=== PATIENT | female | born 1985 | race Caucasian/White ===

== ENCOUNTER 2017-11-24 16:00 | Outpatient (RCR) | payer OTHER, MEDICAID, SELFPAY ==
--- NOTE | 2017-09-27 13:12 | PT.OIE ---
Current Diagnoses Stress incontinence (female) (male) (09/24/17) Other female genital prolapse (09/24/17) Past Surgical History History of third molar tooth extraction Provider Visit Care Team Role Provider Type Jeronimo Rosas MD Primary Care Provider Non-Staff Specialty: Family Practice Address: [facility] [place], [address] Email: Sophie Morris MD Attending Provider Physician Specialty: CORPORATE RECEPTIONIST Address: [address] [place] [address], [address] Email: [email or web address] Physical Therapy Initial Evaluation PT-OP-A Visit Information Start: 09/27/17 12:06 Freq: Status: Active Protocol: Document 09/24/17 10:30 [facility] (Rec: 09/27/17 12:30 [facility] [email or web address]) Out-Patient Physical Therapy Visit Information Visit Information Visit Type Initial Evaluation Visit Start Time 10:30 Visit Stop Time 11:15 Total Visit Minutes 45 Visit Number 1 Number of FILM BOOKER Visits 0 Evaluation Information Evaluation Date 09/24/17 PT-OP-B Current Condition Start: 09/27/17 12:06 Freq: Status: Active Protocol: Document 09/24/17 10:30 [facility] (Rec: 09/27/17 12:30 [facility] [email or web address]) Current Condition History of Current Condition Onset Date December 2015 Current Complaints complaints of pelvic heavyness and pressure, limits activity History of Current Condition 32 year old female who reports having a stage 3 prolapse of bladderm uterus, and rectum. Her symptoms began following a vaginal delvery at 2 1/2 weeks over due in which she had a vaginal hematoma and the placenta would not detach so manual detachment was necessary. She also reports tearing but is not sure degree . She had pneumonia 3 months ago and the coughing worsened her symptoms. 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 Arlen also reports having a diastasis and notes she feels as she does not have any core at this time. 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 She reports wanting to hold off on surgery as she would like to have another baby. Treatment Goals Patient/Caregiver Goals Arlen's treatment goals include pelvic floor strengthening to minimize her prolapse symptoms allowing her to continue working a a art history instructor and for support with a future Prior Functional Status Baseline Function- ADL's Independent Baseline Function- Mobility Independent Current Functional Impairments (Reported) Functional Limitations- ADL's limited with activities that require heavy lifting Functional Limitations- Recreation/ unable to run and limited with Hobbies what she can demonstrate to her clients with pilates PT-OP-C Subjective Start: 09/27/17 12:06 Freq: Status: Active Protocol: Document 09/24/17 10:30 [facility] (Rec: 09/27/17 12:30 [facility] [email or web address]) Patient Questionnaires Pelvic Pain and Urgency/Frequency Patient Symptom Scale Pelvic Pain Score 15 PT-OP-F Manual Assessment Start: 09/27/17 12:06 Freq: Status: Active Protocol: Document 09/24/17 10:30 [facility] (Rec: 09/27/17 12:30 [facility] [email or web address]) Manual Assessments Soft Tissue Assessment Soft Tissue Mobility Assessment 2 finger width diastasis noted both distal and proximal to the umbilicus PT-OP-I Pelvic Floor Start: 09/27/17 12:06 Freq: Status: Active Protocol: Document 09/24/17 10:30 [facility] (Rec: 09/27/17 12:58 [facility] [email or web address]) Pelvic Floor Assessment Urine Pelvic Floor Surgery No Urinary Symptoms Prolapse Falling Out Feeling/Heavy Leakage Size Medium Leakage Cause Cough Exercise Lifting Sneeze Urge Urine Pad Type Panty Liner Pelvic Clock Pelvic Clock 12-3 Atrophy Pelvic Clock 3-6 Atrophy Pelvic Clock 6-9 Atrophy Pelvic Clock 9-12 Atrophy Prolapse Uterine Prolapse Grade 3 Cystocele Grade 3 Rectocele Grade 2 Perineal Descent Resting Present Bearing Present SEMG (uV) Baseline 1.5 10 Second Contraction 6.97 Recruitment Pattern Fair Relaxation Good Holding Poor/Slow Stability of Hold Poor/Slow SEMG Stability of Rest Good PT-OP-Q Treatments Start: 09/27/17 12:06 Freq: Status: Active Protocol: Document 09/24/17 10:30 [facility] (Rec: 09/27/17 12:40 [facility] [email or web address]) Therapeutic Exercises Supine Exercises 1 Supine Exercise Name Neoro awareness of the pelvic floor and long holds with EMG biofeedback Side bilateral Reps/Minutes 10 reps holding 10 seconds each PT-OP-T Assessment and Plan Start: 09/27/17 12:06 Freq: Status: Active Protocol: Document 09/24/17 10:30 [facility] (Rec: 09/27/17 12:30 [facility] [email or web address]) Physical Therapy Assessment Rehab Potential Rehabilitation Potential Good Evaluation Complexity Number of Personal Factors/Comorbidities 0 Number of Body Systems Impaired 1-2 Clinical Presentation at Evaluation Stable Impairments Impairments Activity Tolerance Soft Tissue Mobility Strength Other Impairments pelvic organ prolapse limiting activity level Goals Four Impairment resting descent of the perineum Short Term Goal (STG) Rafaela is educated in scar tissue massage at the perineum to help improve resting position and is taught how to lift from the perineum with pelvic floor contractions STG Duration 6 weeks Three Impairment Decreased endurance of the pelvic floor Short Term Goal (STG) Improve pelvic floor endurance to 10 second hold in supine and 5 second hold in standing positions STG Duration 6 weeks Two Impairment pelvic floor weakness Service Member Goal (LTG) Improve strength of the pelvic floor with NMES and EMG biofeedback to 4/5 MMT all parts of the levator ani LTG Duration 8 weeks One Impairment pelvic organ prolapse limiting activity Alf Goal (LTG) Arlen is instructed in pelvic floor strengthening to improve support to the pelvic floor and 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 She is limited in muscle strength and sensation of the levator ani and would benefit from a home rental of NMES to help her wake up her pelvic floor. She is also presenting with perineal descent due to scar tissue and will be shown some scar tissue massage techniques for home. Abdominal strength is limited due to diastasis and with being a art history instructor I want to make sure she can isolate her pelvic floor and transverse abdominals to give her as much support as she can prior to adding any leg movements or resistance to minimize downward force on her pelvic organs. I started Arlen with EMG biofeedback today to help with neuromuscular awareness of her pelvic floor and she tolerated this well Physical Therapy Plan Frequency and Duration Frequency of Treatment 1x/Week Duration of Treatment 8 weeks Plan of Care Start Date 09/24/17 Plan of Care End Date 11/19/17 Therapeutic Interventions Therapeutic Interventions Home Exercise Program Lymphedema Management Neuromuscular Re-education Patient/Caregiver Education Self-Care/Home Management Soft Tissue Mobilization Therapeutic Exercises Modalities Biofeedback Electric Stimulation Ultrasound Other Therapeutic Interventions home NMES unit for the pelvic floor Please Sign and Return: I have reviewed this Plan of Care and certify that the skilled therapy services above are required to meet the patient?s needs. Physician Signature Date Printed Name and Credentials Clinical Instructor Signature Printed Name and Credentials
--- NOTE | 2017-10-14 09:35 | PT.OTN ---
Current Diagnoses Stress incontinence (female) (male) (10/13/17) Other female genital prolapse (10/13/17) Physical Therapy Treatment Note PT-OP-A Visit Information Start: 09/27/17 12:06 Freq: Status: Active Protocol: Document 10/13/17 14:30 [facility] (Rec: 10/14/17 09:34 [facility] [email or web address]) Out-Patient Physical Therapy Visit Information Visit Information Visit Type Treatment Note Visit Start Time 14:30 Visit Stop Time 15:15 Total Visit Minutes 45 Visit Number 2 Number of FELLER BUNCHER OPERATOR Visits 0 PT-OP-B Current Condition Start: 09/27/17 12:06 Freq: Status: Active Protocol: Document 09/24/17 10:30 [facility] (Rec: 09/27/17 12:30 [facility] [email or web address]) Current Condition History of Current Condition Onset Date December 2015 Current Complaints complaints of pelvic heavyness and pressure, limits activity History of Current Condition 32 year old female who reports having a stage 3 prolapse of bladderm uterus, and rectum. Her symptoms began following a vaginal delvery at 2 1/2 weeks over due in which she had a vaginal hematoma and the placenta would not detach so manual detachment was necessary. She also reports tearing but is not sure degree . She had pneumonia 3 months ago and the coughing worsened her symptoms. 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 Arlen also reports having a diastasis and notes she feels as she does not have any core at this time. 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 She reports wanting to hold off on surgery as she would like to have another baby. Treatment Goals Patient/Caregiver Goals Arlen's treatment goals include pelvic floor strengthening to minimize her prolapse symptoms allowing her to continue working a a medical assisting instructor and for support with a future Prior Functional Status Baseline Function- ADL's Independent Baseline Function- Mobility Independent Current Functional Impairments (Reported) Functional Limitations- ADL's limited with activities that require heavy lifting Functional Limitations- Recreation/ unable to run and limited with Hobbies what she can demonstrate to her clients with pilates PT-OP-C Subjective Start: 09/27/17 12:06 Freq: Status: Active Protocol: Document 10/13/17 14:30 [facility] (Rec: 10/14/17 09:34 [facility] [email or web address]) OP-PT Subjective Patient Comments Patient Comments Arlen reports she has been working on her home exercise program and using a wedge to tilt her pelvis. 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 PT-OP-F Manual Assessment Start: 09/27/17 12:06 Freq: Status: Active Protocol: Document 09/24/17 10:30 [facility] (Rec: 09/27/17 12:30 [facility] [email or web address]) Manual Assessments Soft Tissue Assessment Soft Tissue Mobility Assessment 2 finger width diastasis noted both distal and proximal to the umbilicus PT-OP-I Pelvic Floor Start: 09/27/17 12:06 Freq: Status: Active Protocol: Document 09/24/17 10:30 [facility] (Rec: 09/27/17 12:58 [facility] [email or web address]) Pelvic Floor Assessment Urine Pelvic Floor Surgery No Urinary Symptoms Prolapse Falling Out Feeling/Heavy Leakage Size Medium Leakage Cause Cough Exercise Lifting Sneeze Urge Urine Pad Type Panty Liner Pelvic Clock Pelvic Clock 12-3 Atrophy Pelvic Clock 3-6 Atrophy Pelvic Clock 6-9 Atrophy Pelvic Clock 9-12 Atrophy Prolapse Uterine Prolapse Grade 3 Cystocele Grade 3 Rectocele Grade 2 Perineal Descent Resting Present Bearing Present SEMG (uV) Baseline 1.5 10 Second Contraction 6.97 Recruitment Pattern Fair Relaxation Good Holding Poor/Slow Stability of Hold Poor/Slow SEMG Stability of Rest Good PT-OP-Q Treatments Start: 09/27/17 12:06 Freq: Status: Active Protocol: Document 10/13/17 14:30 [facility] (Rec: 10/14/17 09:34 [facility] [email or web address]) Therapeutic Exercises Supine Exercises 3 Supine Exercise Name TA facilitation NMRE with and without marches 2 Supine Exercise Name ball squeeze with pelvic floor activation 1 Supine Exercise Name Neoro awareness of the pelvic floor and long holds with EMG biofeedback Side bilateral Reps/Minutes 10 reps holding 10 seconds each Neuro Re-Education Treatment Other Activities 1 Details Neuro re-education of the pelvic floor with NMES Reps/Duration 10 minutes Comments good tolerance for NMES and Arlen could feel the pelvic floor activation Self-Care/Home Management Treatment Education Patient Education Home Exercise Program Other Education Patient given a handout on home NMES lachelle [email or web address] PT-OP-T Assessment and Plan Start: 09/27/17 12:06 Freq: Status: Active Protocol: Document 10/13/17 14:30 [facility] (Rec: 10/14/17 09:34 [facility] [email or web address]) Physical Therapy Assessment Assessment Summary Assessment good increase in activation of the pelvic floor today with EMG biofeedback. Her average increase to 10.1 uv and max increased to 14.6 uv (it was 6.9 average and 9.89 max) NMES had to be turned up to 17 uv in order for Arlen to feel it Physical Therapy Plan Frequency and Duration Frequency of Treatment 1x/Week Duration of Treatment 8 weeks Plan of Care Start Date 09/24/17 Plan of Care End Date 11/19/17 Therapeutic Interventions Therapeutic Interventions Home Exercise Program Lymphedema Management Neuromuscular Re-education Patient/Caregiver Education Self-Care/Home Management Soft Tissue Mobilization Therapeutic Exercises Modalities Biofeedback Electric Stimulation Ultrasound Other Therapeutic Interventions home NMES unit for the pelvic floor Next Visit Focus/Plan Next Note Type Treatment Note Next Visit Plan begin sidelying hip exercises and progress TA facilitation with dynamic movement
--- NOTE | 2017-11-24 17:31 | PT.OTN ---
Current Diagnoses Stress incontinence (female) (male) (11/24/17) Other female genital prolapse (11/24/17) Physical Therapy Treatment Note PT-OP-A Visit Information Start: 09/27/17 12:06 Freq: Status: Active Protocol: Document 11/24/17 17:03 [facility] (Rec: 11/24/17 17:31 [facility] [email or web address]) Out-Patient Physical Therapy Visit Information Visit Information Visit Type Progress Note Visit Start Time 16:00 Visit Stop Time 16:45 Total Visit Minutes 45 Visit Number 3 Number of FIELD ARTILLERY OPERATIONS MAN Visits 0 Evaluation Information Evaluation Date 09/24/17 PT-OP-B Current Condition Start: 09/27/17 12:06 Freq: Status: Active Protocol: Document 09/24/17 10:30 [facility] (Rec: 09/27/17 12:30 [facility] [email or web address]) Current Condition History of Current Condition Onset Date December 2015 Current Complaints complaints of pelvic heavyness and pressure, limits activity History of Current Condition 32 year old female who reports having a stage 3 prolapse of bladderm uterus, and rectum. Her symptoms began following a vaginal delvery at 2 1/2 weeks over due in which she had a vaginal hematoma and the placenta would not detach so manual detachment was necessary. She also reports tearing but is not sure degree . She had pneumonia 3 months ago and the coughing worsened her symptoms. 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 Arlen also reports having a diastasis and notes she feels as she does not have any core at this time. 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 She reports wanting to hold off on surgery as she would like to have another baby. Treatment Goals Patient/Caregiver Goals Arlen's treatment goals include pelvic floor strengthening to minimize her prolapse symptoms allowing her to continue working a a instructor bus [employer]rol[employer] and [employer] and for support with a future Prior Functional Status Baseline Function- ADL's Independent Baseline Function- Mobility Independent Current Functional Impairments (Reported) Functional Limitations- ADL's limited with activities that require heavy lifting Functional Limitations- Recreation/ unable to run and limited with Hobbies what she can demonstrate to her clients with pilates PT-OP-C Subjective Start: 09/27/17 12:06 Freq: Status: Active Protocol: Document 11/24/17 17:03 [facility] (Rec: 11/24/17 17:31 [facility] [email or web address]) OP-PT Subjective Patient Comments Patient Comments Arlen reports she does have a pessary now and has been trying to wear it and she does feel it helps support her. She has had a cough again and notes increased pelvic pressure with coughing PT-OP-F Manual Assessment Start: 09/27/17 12:06 Freq: Status: Active Protocol: Document 09/24/17 10:30 [facility] (Rec: 09/27/17 12:30 [facility] [email or web address]) Manual Assessments Soft Tissue Assessment Soft Tissue Mobility Assessment 2 finger width diastasis noted both distal and proximal to the umbilicus PT-OP-I Pelvic Floor Start: 09/27/17 12:06 Freq: Status: Active Protocol: Document 11/24/17 17:03 [facility] (Rec: 11/24/17 17:31 [facility] [email or web address]) Pelvic Floor Assessment SEMG (uV) Baseline 1.5 10 Second Contraction 9.7 Recruitment Pattern Good Relaxation Good Holding Fair Stability of Hold Fair SEMG Stability of Rest Good Comments Pelvic Floor Comments average contraction has increased from 6.9 uv to 9.7 uv and max has increased from 10 uv to 14 uv PT-OP-Q Treatments Start: 09/27/17 12:06 Freq: Status: Active Protocol: Document 11/24/17 17:03 [facility] (Rec: 11/24/17 17:31 [facility] [email or web address]) Therapeutic Exercises Supine Exercises 3 Supine Exercise Name TA facilitation NMRE with and without marches Comments added level 1 b 2 Supine Exercise Name ball squeeze with pelvic floor activation 1 Supine Exercise Name Neoro awareness of the pelvic floor and long holds with EMG biofeedback Side bilateral Reps/Minutes 10 reps holding 10 seconds each Prone Exercises 1 Prone Exercise Name prone knee flexion Manual Therapy Treatment Taping 1 Body Location kinesiotape for diastasis Neuro Re-Education Treatment Other Activities 1 Details Neuro re-education of the pelvic floor with NMES Reps/Duration 10 minutes Comments good tolerance for NMES and Arlen could feel the pelvic floor activation at level 8 today PT-OP-T Assessment and Plan Start: 09/27/17 12:06 Freq: Status: Active Protocol: Document 11/24/17 17:03 [facility] (Rec: 11/24/17 17:31 [facility] [email or web address]) Physical Therapy Assessment Assessment Summary Assessment good increase in activation of the pelvic floor today with EMG biofeedback. Her average increase to 10.1 uv and max increased to 14.0 uv (it was 6.9 average and 9.89 max) Arlen was able to feel the NMES unit at a lower level today showing improved sensation of the pelvic floor. Physical Therapy Plan Frequency and Duration Frequency of Treatment 1x/Week Duration of Treatment 8 weeks Plan of Care Start Date 11/24/17 Plan of Care End Date 01/14/18 Therapeutic Interventions Therapeutic Interventions Home Exercise Program Neuromuscular Re-education Patient/Caregiver Education Self-Care/Home Management Soft Tissue Mobilization Therapeutic Exercises Modalities Biofeedback Electric Stimulation Ultrasound Other Therapeutic Interventions home NMES unit for the pelvic floor Next Visit Focus/Plan Next Note Type Treatment Note Next Visit Plan begin sidelying hip exercises and progress TA facilitation with dynamic movement
--- NOTE | 2018-04-28 13:56 | PT.OPDS ---
Current Diagnoses Stress incontinence (female) (male) (11/24/17) Other female genital prolapse (11/24/17) Provider Visit Care Team Role Provider Type Jeronimo Rosas MD Primary Care Provider Non-Staff Specialty: Family Practice Address: [facility] [place], [address] Email: Sophie Morris MD Attending Provider Physician Specialty: HONE OPERATOR Address: [address] [place] [address], [address] Email: [email or web address] Visit Number Visit Number 3 Discharge Summary PT-OP-B Current Condition Start: 09/27/17 12:06 Freq: Status: Active Protocol: Document 09/24/17 10:30 [facility] (Rec: 09/27/17 12:30 [facility] [email or web address]) Current Condition History of Current Condition Onset Date December 2015 Current Complaints complaints of pelvic heavyness and pressure, limits activity History of Current Condition 32 year old female who reports having a stage 3 prolapse of bladderm uterus, and rectum. Her symptoms began following a vaginal delvery at 2 1/2 weeks over due in which she had a vaginal hematoma and the placenta would not detach so manual detachment was necessary. She also reports tearing but is not sure degree . She had pneumonia 3 months ago and the coughing worsened her symptoms. 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 Arlen also reports having a diastasis and notes she feels as she does not have any core at this time. 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 She reports wanting to hold off on surgery as she would like to have another baby. 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 and for support with a future Prior Functional Status Baseline Function- ADL's Independent Baseline Function- Mobility Independent Current Functional Impairments (Reported) Functional Limitations- ADL's limited with activities that require heavy lifting Functional Limitations- Recreation/ unable to run and limited with Hobbies what she can demonstrate to her clients with pilates PT-OP-C Subjective Start: 09/27/17 12:06 Freq: Status: Active Protocol: Document 11/24/17 17:03 [facility] (Rec: 11/24/17 17:31 [facility] [email or web address]) OP-PT Subjective Patient Comments Patient Comments Arlen reports she does have a pessary now and has been trying to wear it and she does feel it helps support her. She has had a cough again and notes increased pelvic pressure with coughing PT-OP-F Manual Assessment Start: 09/27/17 12:06 Freq: Status: Active Protocol: Document 09/24/17 10:30 [facility] (Rec: 09/27/17 12:30 [facility] [email or web address]) Manual Assessments Soft Tissue Assessment Soft Tissue Mobility Assessment 2 finger width diastasis noted both distal and proximal to the umbilicus PT-OP-I Pelvic Floor Start: 09/27/17 12:06 Freq: Status: Active Protocol: Document 11/24/17 17:03 [facility] (Rec: 11/24/17 17:31 [facility] [email or web address]) Pelvic Floor Assessment SEMG (uV) Baseline 1.5 10 Second Contraction 9.7 Recruitment Pattern Good Relaxation Good Holding Fair Stability of Hold Fair SEMG Stability of Rest Good Comments Pelvic Floor Comments average contraction has increased from 6.9 uv to 9.7 uv and max has increased from 10 uv to 14 uv PT-OP-T Assessment and Plan Start: 09/27/17 12:06 Freq: Status: Active Protocol: Document 04/28/18 13:54 [facility] (Rec: 04/28/18 13:56 [facility] [email or web address]) Physical Therapy Assessment Assessment Summary Assessment As of Arlen's last visit there was a good increase in activation of the pelvic floor with EMG biofeedback. Her average increase to 10.1 uv and max increased to 14.0 uv (it was 6.9 average and 9.89 max) Arlen was able to feel the NMES unit at a lower level today showing improved sensation of the pelvic floor. She has not been seen since this last visit and will be discharged at this time Physical Therapy Plan Discharge Physical Therapy Discharge Reasons No Longer Attending PT
== END 2018-07-14 10:18 ==
LOC: PHYS 16:00
PROVIDERS: PCP Family Medicine; Visit Provider Obstetrics & Gynecology
DX: N81.89 Other female genital prolapse (principal); N39.3 Stress incontinence (female) (male)
CPT/HCPCS: 97110; 97112; 97161

== ENCOUNTER → 2018-03-08 11:35 | Outpatient (CLI) | payer OTHER, MEDICAID, SELFPAY ==
[2018-03-08 12:27] LABS: Add Manual Diff / Slide Review NO; Basophils Percent Auto 0.3 % (0-2); Eosinophils Percent Auto 0.7 % (2-4); Hemoglobin 12.8 g/dL (12.0-16.0); Lymphocytes Percent Auto 36.2 % (25-40); Mean Corpuscular HGB Conc 33.7 % (30-36); Mean Corpuscular Hemoglobin 27.5 PG (26-34); Mean Corpuscular Volume 81.7 fL (80-100); Monocytes Percent Auto 5.9 % (3-14); Neutrophils Absolute Auto 4800 /uL (3000-5900); Neutrophils Percent Auto 56.9 % (50-75); Platelet Count 288 X10^3/uL (150-400); Red Blood Cell Count 4.65 X10^6/uL (4.0-5.2); Red Cell Distribution Width 12.9 % (11.6-14.8); White Blood Cell Count 8.5 X10^3/uL (4.5-11.0)
[2018-03-08 12:38] LABS: Appearance Urine UA CLEAR; Bilirubin Urine UA NEGATIVE (NEGATIVE); Color Urine UA YELLOW; Glucose Urine UA NEGATIVE (Normal); Ketones Urine UA NEGATIVE (NEGATIVE); Leukocyte Esterase Urine UA NEGATIVE (NEGATIVE); Nitrite Urine UA NEGATIVE (Negative); Occult Blood Urine UA NEGATIVE (Negative); Protein Urine UA NEGATIVE (Negative); Specific Gravity Urine UA <=1.005 (1.000-1.035); Urobilinogen Urine UA 0.2 E.U./dL (0.2)
[2018-03-08 16:09] LABS: Hepatitis B Surface Antigen NEGATIVE s/c (NEGATIVE); Rubella Antibody IgG 47.1 IU/mL (>15)
[2018-03-08 16:24] LABS: HIV 1 and 2 Antibody NEGATIVE (NEGATIVE); Hep C Virus Ab w/Reflex Quant NEGATIVE s/c (NEGATIVE)
[2018-03-10 14:21] LABS: RPR Screen Nonreactive (Nonreactive)
[2018-03-10 14:51] LABS: Varicella IgG Antibody > 4000.00 Index (< 135.00)
[2018-03-10 15:20] LABS: HSV 2 IGG AB < 0.90 index (< 0.90); HSV1IGG < 0.90 index (< 0.90)
== END ==
PROVIDERS: PCP Family Medicine; Visit Provider Obstetrics & Gynecology
DX: Z34.81 Encounter for supervision of other normal pregnancy, first trimester (principal); Z3A.01 Less than 8 weeks gestation of pregnancy
CPT/HCPCS: 36415; 80055; 81003; 86695; 86696; 86703; 86787; 86803; 86850; 86900; 86901; 87086

== ENCOUNTER → 2018-05-12 15:37 | Outpatient (CLI) | payer OTHER, MEDICAID, SELFPAY ==
[2018-05-18 12:43] LABS: AFP, Serum 32.6 ng/mL; Cigarette Smoker N; Donated Egg NOT GIVEN; Donor Egg Age NOT GIVEN; Estriol, Free 0.86 ng/mL; Inhibin A, Dimeric 194 pg/mL; Maternal Weight 139 lbs; Number of Fetuses 1; Previous Pregnancy Down Syndro NOT GIVEN; hCG, MoM 1.55; hCG, Serum 46.1 IU/mL
== END ==
PROVIDERS: PCP Nurse Practitioner Family; Visit Provider Obstetrics & Gynecology
DX: Z34.82 Encounter for supervision of other normal pregnancy, second trimester (principal); Z3A.17 17 weeks gestation of pregnancy
CPT/HCPCS: 82105; 82677; 84702; 86336

== ENCOUNTER → 2018-06-08 09:48 | Outpatient (CLI) | payer OTHER, MEDICAID, SELFPAY ==
--- NOTE | 2018-06-08 09:50 | DI.US.S_ITS ---
PROCEDURE: US OB >= 14 WEEKS FETUS INDICATIONS: ANATOMY OUTSIDE/PRIOR DATING DATA: Last menstrual period (LMP): 01/13/18. LMP-based estimated date of delivery (GONZÁLEZ): 10/20/18. First dating scan (date and location): 03/23/18 Estimated date of delivery (GONZÁLEZ) from first dating scan: 10/25/18. TECHNIQUE: Real-time scanning was performed of the fetus, with image documentation and biometric measurements. Endovaginal scanning: None COMPARISON: [facility], , OB >= 14 WEEKS FETUS, 05/12/2018, 15:20. FINDINGS: General: A single living intrauterine gestation is present. Presentation: Transverse. Placenta: Placental position is fundal, without previa. Amniotic fluid index: 20.9 cm, normal range is 5-24 cm. heart rate: 153 beats per minute. Maternal cervical canal: 5.4 cm long. Normal lower limit is 2.5 cm. biometrics: Biparietal diameter: 21 weeks 6 days Head circumference: 21 weeks 3 days Abdominal circumference: 21 weeks 3 days Femur length: 20 weeks 5 days Estimated gestational age from initial scan: 20 weeks 1 day Composite gestational age from present scan: 21 weeks 3 days Estimated weight and percentile: 93 g Measurement variability for biometric dating: +/- 7 days from 14 weeks to 15 weeks 6 days gestation, +/- 10 days from 16 weeks to 21 weeks 6 days gestation, +/- 2 weeks from 22 weeks to 27 weeks 6 days gestation, +/- 3 weeks for 28 weeks gestation or later. weight reference: 4500 g or EFW >90/95% is considered macrosomia or large for gestational age. EFW <10% is small for gestational age. EFW 5% or less is considered intra-uterine growth restriction. Anatomic survey: Neuro: Ventricles are non-dilated at less than 10 mm. Cisterna magna is normal at 3-11 mm. Cerebellum is normal in size and morphology. Nuchal skin fold: Normal at less than 6 mm between 14-21 weeks gestational age. Face: Nose and lips, facial profile are normal. Spine: No evidence for spina bifida. Heart: 4-chambered heart is present, with normal ventricular outflow tracts. Solitary left ventricular intracardiac focus. Diaphragm: Diaphragm is intact. Stomach: Left-sided stomach is present. Kidneys: No hydronephrosis. Normal is less than 5 mm in 2nd trimester, less than 7 mm in 3rd trimester. Cord: 3-vessel cord has orthotopic insertion. Bladder: Normal in size. Extremities: All 4 extremities identified. IMPRESSION: 1. Single living IUP redemonstrated and interval growth is normal with ultrasound GONZÁLEZ of 10/25/18. 2. Echogenic intracardiac focus: 1.4-1.8 fold likelihood of Down syndrome. If isolated finding, consider aneuploidy screening with cell-free DNA. If aneuploidy screen is negative, no further evaluation needed. Anatomic survey otherwise normal. Dictated by: James LEVI Interpreted: Tika Kelly MD on 06/08/2018 at 13:55 Approved by: Tika Kelly M.D. on 06/08/2018 at 17:19
== END ==
PROVIDERS: PCP Nurse Practitioner Family; Visit Provider Obstetrics & Gynecology
DX: Z34.82 Encounter for supervision of other normal pregnancy, second trimester (principal); Z3A.21 21 weeks gestation of pregnancy
CPT/HCPCS: 76811

== ENCOUNTER → 2018-07-06 15:17 | Outpatient (CLI) | payer OTHER, MEDICAID, SELFPAY ==
[2018-07-06 17:08] LABS: Hematocrit 31.8 % (36-46); Hemoglobin 10.6 g/dL (12.0-16.0)
[2018-07-06 17:31] LABS: GTT (PREG) 1 Hour PP 50gm Dose 102 mg/dL (76-139)
== END ==
PROVIDERS: PCP Nurse Practitioner Family; Visit Provider Obstetrics & Gynecology
DX: Z34.82 Encounter for supervision of other normal pregnancy, second trimester (principal)
CPT/HCPCS: 82950; 85014; 85018

== ENCOUNTER → 2018-09-21 09:20 | Outpatient (CLI) | payer OTHER, MEDICAID, SELFPAY ==
[2018-09-22 18:16] LABS: Strep Grp B PCR POS for Grp B Strep
== END ==
PROVIDERS: PCP Nurse Practitioner Family; Visit Provider Obstetrics & Gynecology
DX: Z34.83 Encounter for supervision of other normal pregnancy, third trimester (principal)
CPT/HCPCS: 87653

== ENCOUNTER 2018-10-11 06:12 | Inpatient (IN) | payer OTHER, MEDICAID, SELFPAY ==
[2018-10-11] VITALS (7 sets, daily range): BP systolic 98–119; BP diastolic 42–61; PULSE 75–80; RESP 13–16; TEMP 35.6–35.9; O2SAT 95–100
[2018-10-11] MEDS: LACTATED RINGERS 1,000 ML 100 ML IV ×2 (07:35→10:45)
[2018-10-11 07:38] LABS: Add Manual Diff / Slide Review NO; Basophils Absolute Auto 0 /uL (0-100); Basophils Percent Auto 0.6 % (0-2); Eosinophils Absolute Auto 100 /uL (0-450); Eosinophils Percent Auto 1.3 % (2-4); Hemoglobin 11.5 g/dL (12.0-16.0); Lymphocytes Absolute Auto 2200 /uL (1100-4500); Mean Corpuscular Hemoglobin 27.8 PG (26-34); Mean Corpuscular Volume 81.9 fL (80-100); Monocytes Absolute Auto 700 /uL (0-900); Monocytes Percent Auto 8.7 % (3-14); Neutrophils Absolute Auto 5200 /uL (1500-7000); Neutrophils Percent Auto 62.4 % (50-75); Platelet Count 230 X10^3/uL (150-400); Red Blood Cell Count 4.15 X10^6/uL (4.0-5.2); Red Cell Distribution Width 14.3 % (11.6-14.8); White Blood Cell Count 8.3 X10^3/uL (4.5-11.0)
--- NOTE | 2018-10-11 07:43 | PM.PREOP ---
Pre-operative Note Interval Note History & Physical reviewed/Exam performed by Physician: Yes Changes to H&P: No
[2018-10-11] MEDS: CEFAZOLIN 2 GM/100 ML FROZ.PIGGY IV (07:47)
--- NOTE | 2018-10-11 08:13 | SUR.OPER ---
Supine on Padded OR bed, head on pillow, safety belt at thigh, arms secured on padded arm boards at <90 degrees abduction. Bump under right buttock. Legs uncrossed with pillow under knees, gel pad to heels, tape over blanket to lower legs.
[2018-10-11] MEDS: ONDANSETRON 4 MG/2 ML INJ IV ×2 (09:09→12:16)
[2018-10-11] MEDS: LACTATED RINGERS 1,000 ML 42 ML IV (09:20)
--- NOTE | 2018-10-11 09:55 | SUR.PHASEI ---
Late entry: Pt awake on arrival, was warm to touch- temp 96.0-96.6 on two different thermometer , flushed and c/o nausea, IV fluids open, cool wash cloth to head, quease ease to bedside and ondansetron given. Dr Castellon to bedside, instructed to infuse 3rd IV bag. Report to Liseth. Pt transported and left in stable condition.
[2018-10-11] MEDS: KETOROLAC 30 MG/ML VIAL IV ×3 (10:46→22:05)
[2018-10-11] MEDS: METOCLOPRAMIDE 10 MG/2 ML INJ IV ×2 (12:44→16:41)
[2018-10-11] MEDS: SODIUM CHLORIDE 0.9% 1,000 ML 100 ML IV (20:57)
[2018-10-12] MEDS: KETOROLAC 30 MG/ML VIAL IV (05:16)
--- NOTE | 2018-10-12 06:50 | P.OP_ITS ---
Operative Date/Time/Diagnoses Date of procedure: 10/11/18 Time of procedure: 08:50 Pre-op diagnosis: Thirty-nine weeks gestation Pelvic relaxation Very difficult 1st delivery Post-op diagnosis: same Procedure: Procedures Operation Date: 10/11/18 07:45 Actual Procedures Side Surgeon p Section Sophie Morris MD Indications: Thirty-nine weeks gestation Pelvic relaxation Very difficult 1st delivery Surgeon: Sophie Morris Manufacturing Assistant: Milagro Deng Anesthesia Type: Spinal (With Duramorph) Operative Notes Findings: Live male in the KAYLA presentation Normal uterus, tubes, and ovaries Closure Type: primary Specimen(s): other (Placenta, cord bloods) Applied: catheter Estimated blood loss (mL): 350 Blood products transfused: none Procedure in detail: The patient was taken to the operating room where she was placed in the seated position. Spinal anesthesia was administered with Duramorph. She was then placed in the dorsal supine position with a leftward tilt. She was prepped and draped in the usual sterile fashion. A timeout was performed. After spinal analgesia was found to be adequate, a Pfannenstiel skin incision was made 2 fingerbreadths above the pubic symphysis and carried through to the underlying layer fascia. The fascia was nicked in the midline, and the incision extended bilaterally with the Landis scissors. The superior aspect of the fascial incision was grasped with a Shawn clamps, elevated, and the underlying rectus muscles dissected off sharply and bluntly. Attention was then turned to the inferior aspect of this incision which in a similar fashion was grasped with a Shawn clamps, elevated, and the underlying rectus muscles dissected off sharply and bluntly. The rectus muscles were in the midline. The peritoneum was identified, grasped between 2 hemostats, and entered sharply with the Metzenbaum scissors. This incision was extended superiorly and inferiorly with good visualization of the bladder. The bladder blade was inserted. The vesicouterine peritoneum was identified, grasped with the pickup, and entered sharply with the Metzenbaum scissors. This incision was extended bilaterally, and the bladder flap was created digitally. The bladder blade was reinserted. The lower uterine segment was incised in a transverse fashion with the scalpel. Upon entering the amniotic sac there was a large amount of clear amniotic fluid. The infant's head was delivered with assistance of the nurse elevating from below. The nose and mouth were suctioned with bulb suction. The remainder of the body delivered without difficulty. The cord was double clamped and cut. The was handed off to waiting RN and RT. The placenta was delivered manually. There was a uterine inversion which was replaced without difficulty. The uterus was cleared of all clots and debris. The uterine incision was repaired with #1 chromic in a running interlocking fashion, and a second layer the same suture was used for an imbricating layer. Hemostasis was achieved. The tubes and ovaries were examined and were found to be normal. The gutters were cleared of all clots and debris. The bladder flap was reapproximated using 2-0 Vicryl in a running fashion. The parietal peritoneum was closed using 2-0 Vicryl in a running fashion. The fascia was reapproximated using 0 Vicryl in a running fashion. Subcutaneous layer was copiously irrigated with warm normal saline. Five simple interrupted sutures of 3-0 Vicryl were placed to reapproximate the subcutaneous layer. The skin was closed with 4-0 undyed Vicryl in a subcuticular fashion. Steri-Strips were placed. An Aquacel dressing was placed. The uterus was expressed of a small amount of old blood. Sponge, lap, and instrument counts were correct x-2. The patient tolerated the procedure well, and was taken to PACU in stable condition. 1200 cc crystalloid, 150cc clear yellow urine. Complications: none Post-operative Condition: stable Disposition: PACU Plan for aftercare: To the center after recovery
[2018-10-12 06:52] LABS: Hematocrit 32.5 % (36-46); Hemoglobin 10.6 g/dL (12.0-16.0)
[2018-10-12] MEDS: OXYCODONE/ACETAMINOPHEN 5/325 TABLET 2 TAB PO ×3 (08:18→21:49)
[2018-10-12] MEDS: PRENATAL VIT,CALC/IRON/FOLIC 1 TABLET 1 TAB PO (08:19)
[2018-10-12] MEDS: DOCUSATE 250 MG CAPSULE PO (08:19)
[2018-10-12] MEDS: IBUPROFEN 600 MG TABLET PO ×2 (15:55→21:49)
[2018-10-12] MEDS: LANOLIN OINT 7 GM 1 APPLIC TOP (21:50)
[2018-10-12] MEDS: MAGNESIUM HYDROXIDE 30 ML UDC PO (21:55)
[2018-10-13] MEDS: IBUPROFEN 600 MG TABLET PO ×2 (03:36→11:01)
[2018-10-13] MEDS: OXYCODONE/ACETAMINOPHEN 5/325 TABLET 2 TAB PO ×3 (03:37→13:15)
[2018-10-13] MEDS: DOCUSATE 250 MG CAPSULE PO (08:35)
[2018-10-13] MEDS: PRENATAL VIT,CALC/IRON/FOLIC 1 TABLET 1 TAB PO (08:35)
[2018-10-13 09:26] VITALS: BP 112/49; PULSE 79; RESP 13; TEMP 35.9
--- NOTE | 2018-10-22 13:20 | P.PNOB_ITS ---
Subjective - OB Patient comments: no complaints baby status: doing well and nursing well Narrative: Postop day # 1 status post primary low-transverse section secondary to pelvic relaxation and a traumatic 1st delivery Date Patient Seen: 10/12/18 Time Patient Seen: 07:45 Interval history: Patient is a 33-year-old 2 para 2 postop day # 1 status post primary low-transverse section Patient is tolerating a diet. Her catheter has been removed. No nausea or vom iting. She is ambulating. Exam Vital Signs (past 8 hours): Oxygen Delivery Method Room Air Narrative Exam Narrative: Generally: Patient is sitting up in bed, no acute distress Lungs: Clear to auscultation bilaterally Cardiovascular: Regular rate and rhythm Abdomen: Soft and flat. Good bowel sounds Fundus: Firm at U -1 Incision: Clean dry and intact with Aquacel dressing Extremities: Negative Homans, no edema Objective Labs Result Diagrams: 10/12/18 06:25 Assessment & Plan Plan day: 1 plan OB: routine postop care Time Spent With Patient Total time spent is greater than 50% in coordination of care (as documented) at patient's floor/unit and/or counseling patient: 15-24 minutes
--- NOTE | 2018-10-22 13:20 | PM.OBDS.1 ---
Discharge Providers Date of admission: 10/11/18 06:12 Discharge Date: 10/13/18 Primary care physician: RAMONA Cifuentes Consults: 10/11/18 10:00 Consult to Supervisor Heading Routine Comment: Discharge provider: Sophie Morris MD Summary Date Patient Seen: 10/13/18 Time Patient Seen: 07:45 Procedures: Primary low-transverse section Spinal anesthesia Hospital Course: Patient is a 33-year-old 2 para 2 postop day # 2 status post primary low-transverse section secondary to significant pelvic relaxation and a traumatic 1st delivery She underwent this procedure on 10/11/2018 without complication. Her postoperative course was unremarkable. She has voided without the catheter. She is tolerating a diet. No nausea or vomiting. Pain well controlled. She is ambulating without assistance. Peripartum Data Infant Delivery Method: Section Laceration description: None Episiotomy description: None Procedures: Primary low-transverse section Spinal anesthesia complications: none Status at Discharge Cognitive/behavioral status at discharge: oriented Functional status at discharge: independent ambulation Overall status at discharge: patient is progressing back to baseline Time Spent with Patient Total time spent providing and/or coordinating discharge services: Less than 30 minutes Objective Labs Result Diagrams: 10/12/18 06:25 Exam Vital Signs (past 8 hours): Oxygen Delivery Method Room Air Discharge Plan Discharge Plan Patient Disposition: Home Discharge comment: Call with fever, chills, redness or drainage around the incision or bleeding vaginally more than a pad in an hour Ibuprofen 600mg every 6 hours Discharge Med Rec/Prescriptions Prescriptions: New oxycodone-acetaminophen [Percocet] 5-325 mg tablet 1 tab PO Q4-6H PRN (Reason: pain) Qty: 30 RF: 0 Continued prenat.vits,[place],oke-aiex-[id number] tablet 1 tab PO DAILY RF: 0 Discontinued metronidazole [Metrogel Vaginal] 0.75 % gel 1 appl Vaginal HS Qty: 70 RF: 1 nystatin-triamcinolone 15 GM ointment 1 luis Topical TWICE A DAY Qty: 15 RF: 4 fluconazole 150 mg tablet 150 mg PO ONCE Qty: 1 RF: 0 Follow up/Referrals: Sophie Morris MD [Physician] - 6 Weeks (please follow up with your primary care provider in [place] (1 week) to remove surgical dressing please follow up with Dr Morris on ThursdayNovember 22 at 3pm) Provider Discharge Instructions Diet: Regular Skin/Wound/Dressing Care Report to your healthcare provider any signs of infection, such as:: chills, fever, increased pain, unusual drainage and unusual redness Dressing: Have Aquacel removed by PCP on Thursday Visit Report/Discharge Packet Instructions: DI for Visit Report Forms: Stroke Signs & Symptoms Discharge Data Primary Care Provider: Tila Vizcaino Attending Provider: Sophie Morris Admit Date/Time: 10/11/18 06:12 Discharges patient from system. Discharge Date/Time: 10/13/18 14:01
== END 2018-10-13 14:01 | disposition home or self-care (01) | DRG 540 ==
PROVIDERS: Admitting Provider Obstetrics & Gynecology; PCP Nurse Practitioner Family; Visit Provider Obstetrics & Gynecology
PROC: 10D00Z1 Extraction of Products of Conception, Low, Open Approach (ICD-10-PCS; CPT 59514; principal; 2018-10-11 07:45)
DX: O34.83 Maternal care for other abnormalities of pelvic organs, third trimester (principal); Z3A.39 39 weeks gestation of pregnancy; Z37.0 Single live birth
CPT/HCPCS: 36415; 59050; 59514; 85014; 85018; 85025; 86850; 86900; 86901; J0690; J1885; J2274; J2405; J2590; J2765; J3010